=== PATIENT | female | born 1985 | race Caucasian/White ===

== ENCOUNTER 2017-05-13 17:40 | Emergency (ER) | payer OTHER ==
[~2017-05-13] VITALS: Ht 167.6 cm; Wt 103.4 kg
[~2017-05-13 17:40] MED LIST: ACET-7604 PO
[2017-05-13 17:46] VITALS: BP 160/88
--- NOTE | 2017-05-13 17:48 | NUR ---
Patient ambulated to bed 02.
--- NOTE | 2017-05-13 17:50 | NUR ---
Dr. Gómez evaluating patient at bedside.
--- NOTE | 2017-05-13 17:53 | NUR ---
PT PRESENTS TO ER FOR EVALUATION OF SOB SINCE 1200. PT STATES SHE HAS DONE 5 ALBUTEROL NEBS AT HOME BUT THE SOB HAS GOTTEN WORSE. HX ASTHMA. DENIES N/V/D; SKIN IS PINK/WARM/DRY; AAOX4 WITH EVEN AND STEADY GAIT; LUNGS EXP WHZ BL; HR EVEN AND REGULAR; PT DENIES ANY FEVER, CP, SOB, OR COUGH AT THIS TIME; PATIENT STATES PAIN OF 8/10 AT THIS TIME; VSS; PATIENT POSITIONED FOR COMFORT; HOB ELEVATED; BEDRAILS UP X2; BED DOWN. ER MD MADE AWARE OF PT STATUS.
--- NOTE | 2017-05-13 17:53 | NUR ---
Respiratory Therapist at bedside for respiratory intervention.
[2017-05-13] MEDS ORDERED: IPRATROPIUM 0.02% 0.5 MG/2.5 ML NEBU INH ONE (17:55)
[2017-05-13] MEDS ORDERED: MAG SULF 2000 MG/WATER PREMIX 50 ML IV ONE (17:55)
[2017-05-13] MEDS ORDERED: ALBUTEROL 0.083% 2.5 MG/3 ML NEBU INH ONE ×3 (17:55→19:55)
[2017-05-13] MEDS ORDERED: methylPREDNISolone SS 125 MG/2 ML VIAL IVP ONE (17:55)
--- NOTE | 2017-05-13 18:46 | NUR ---
Respiratory Therapist at bedside for respiratory intervention.
--- NOTE | 2017-05-13 19:11 | NUR ---
REPORT GIVEN TO SONI BLANTON FOR CONTIUATION OF CARE
--- NOTE | 2017-05-13 19:12 | NUR ---
PATIENT RESTING AT THIS TIME.
--- NOTE | 2017-05-13 19:50 | NUR ---
Dr. Ceballos evaluating patient at bedside.
--- NOTE | 2017-05-13 20:08 | NUR ---
Respiratory Therapist at bedside for respiratory intervention.
--- NOTE | 2017-05-13 20:20 | NUR ---
IV removed, catheter intact and site benign. Applied folded 4x4 gauze and tape to stop bleeding.
[2017-05-13 20:45] VITALS: BP 145/72
--- NOTE | 2017-05-13 20:45 | NUR ---
Patient discharged with v/s stable. Written and verbal after care instructions given and explained. Patient alert, oriented and verbalized understanding of instructions. Ambulatory with steady gait. All questions addressed prior to discharge. ID band removed. Patient advised to follow up with PMD. Rx of PREDNISONE AND PROAIR given. Patient educated on indication of medication including possible reaction and side effects. Opportunity to ask questions provided and answered.
== END 2017-05-13 20:45 | disposition home or self-care (01) ==
LOC: MED 17:40
DX: J45.901 Unspecified asthma with (acute) exacerbation (principal); F17.210 Nicotine dependence, cigarettes, uncomplicated; Z79.899 Other long term (current) drug therapy
CPT/HCPCS: 71010; 94640; 96374; 96375; 99285; J2930; J3475; J7613; J7644; Q0092

== ENCOUNTER 2018-01-06 16:27 | Emergency (ER) | payer OTHER ==
[~2018-01-06] VITALS: Ht 170.2 cm; Wt 102.1 kg
[2018-01-06 16:30] VITALS: BP 130/89
--- NOTE | 2018-01-06 17:16 | NUR ---
PATIENT IS A 32 YO FEMALE SHE STATED SHE HAD A FAMILY EMERGENCY AND LEFT ER WITHOUT BEING SEEN.
--- NOTE | 2018-01-06 17:22 | NUR ---
PATIENT LEFT WITHOUT BEING SEEN BY DR. RAMIREZ. NO FURTHER CARE PROVIDED FOR PATIENT.
== END 2018-01-06 21:04 | disposition left against medical advice (07) ==
LOC: MED 16:27
DX: N93.9 Abnormal uterine and vaginal bleeding, unspecified (principal); Z53.21 Procedure and treatment not carried out due to patient leaving prior to being seen by health care provider

== ENCOUNTER 2018-10-28 16:20 | Emergency (ER) | payer OTHER ==
[~2018-10-28] VITALS: Ht 170.2 cm; Wt 99.8 kg
[2018-10-28 16:25] VITALS: BP 158/64
--- NOTE | 2018-10-28 16:25 | NUR ---
PT AMBULATED TO BED 2
--- NOTE | 2018-10-28 16:26 | NUR ---
PATIENT PRESENTS TO ED WITH C/O ASTHMA ATTACK WITH GENERAL BODY ACHES 7/10, WHEEZED LUNG SOUNDS NOTED. PT STATES SELF BREATHING TREATMENT EARLY AT HOME, DID NOT WORK MUCH, COUGH WITH COLD SYMTOMS X3 DAYS, DENIES N/V/D; SKIN IS PINK/WARM/DRY; PATIENT POSITIONED FOR COMFORT; HOB ELEVATED; BEDRAILS UP X2; BED DOWN. ER MD MADE AWARE OF PT STATUS.
--- NOTE | 2018-10-28 16:27 | NUR ---
Patient being evaluated by physician at bedside.
[2018-10-28] MEDS ORDERED: ALBUTEROL 0.083% 2.5 MG/3 ML NEBU INH ONE (16:30)
[2018-10-28] MEDS ORDERED: predniSONE 20 MG TAB PO ONE (16:30)
[2018-10-28] MEDS ORDERED: IPRATROPIUM 0.02% 0.5 MG/2.5 ML NEBU INH ONE (16:30)
--- NOTE | 2018-10-28 16:35 | NUR ---
RT AT BEDSIDE
--- NOTE | 2018-10-28 17:34 | NUR ---
Patient discharged with v/s stable. Written and verbal after care instructions given and explained. Patient alert, oriented and verbalized understanding of instructions. Ambulatory with steady gait. All questions addressed prior to discharge. ID band removed. Patient advised to follow up with PMD. Rx of CLARITIN, FLONASE, PREDNISONE, ALBUTEROL given. Patient educated on indication of medication including possible reaction and side effects. Opportunity to ask questions provided and answered.
[2018-10-28 17:35] VITALS: BP 131/73
== END 2018-10-28 17:34 | disposition home or self-care (01) ==
LOC: MED 16:20
DX: J45.909 Unspecified asthma, uncomplicated (principal); R51 Headache; Z79.891 Long term (current) use of opiate analgesic
CPT/HCPCS: 94640; 99283; J7512; J7613; J7644

== ENCOUNTER 2019-02-28 19:15 | Emergency (ER) | payer OTHER ==
[~2019-02-28] VITALS: Ht 172.7 cm; Wt 104.3 kg
[2019-02-28 19:30] VITALS: BP 138/90
--- NOTE | 2019-02-28 19:32 | NUR ---
TO LOBBY A/W BED AMBULATORY
--- NOTE | 2019-02-28 20:00 | NUR ---
PT USED CRUTCHES TO AMBULATE TO B
--- NOTE | 2019-02-28 20:05 | NUR ---
PT BIB SELF FOR RT ANKLE PAIN S/P MECH FALL YESTERDAY. +CMS. SWELLING NOTED TO AREA. NO REDNESS OR OPEN SKIN. PT DENIES LOC AT TIME OF INCIDENT. PT SITTING IN CHAIR , AWAKE, ALERT, AND CALM.
--- NOTE | 2019-02-28 20:16 | NUR ---
PT TAKEN TO RAD
[2019-02-28] MEDS ORDERED: HYDROcodone/APAP 5/325 MG 1 TAB TAB PO ONE (20:35)
[2019-02-28] MEDS ORDERED: KETOROLAC 30 MG/ML VIAL IM ONE (20:35)
--- NOTE | 2019-02-28 20:58 | NUR ---
SHORT POSTERIER SPLINT WAS PLACED ON PTS R KRYSTINA. PTS PMSC WNL.
--- NOTE | 2019-02-28 21:00 | NUR ---
PT HAS HER OWN CRUTCHES AND DOES NOT WANT NEW ONES.
[2019-02-28 21:32] VITALS: BP 145/88
--- NOTE | 2019-02-28 21:32 | NUR ---
Patient discharged with v/s stable. Written and verbal after care instructions given and explained. Patient alert, oriented and verbalized understanding of instructions. Ambulatory with steady gait. All questions addressed prior to discharge. ID band removed. Patient advised to follow up with PMD. Rx of NORCO, NAPROSYN given. Patient educated on indication of medication including possible reaction and side effects. Opportunity to ask questions provided and answered.
== END 2019-02-28 21:32 | disposition home or self-care (01) ==
LOC: MED 19:15
DX: S82.831A Other fracture of upper and lower end of right fibula, initial encounter for closed fracture (principal); J45.909 Unspecified asthma, uncomplicated; Z79.899 Other long term (current) drug therapy; W19.XXXA Unspecified fall, initial encounter; Y93.01 Activity, walking, marching and hiking; Y92.89 Other specified places as the place of occurrence of the external cause; Y99.8 Other external cause status
CPT/HCPCS: 29515; 73610; 81025; 96372; 99283; J1885